=== PATIENT | male | born 1945 | race Caucasian/White ===

== ENCOUNTER → 2020-03-11 | Outpatient (CLI) | payer MEDICARE ==
[~2020-03-11] MED LIST: AMLO1CAP PO; DICL100G25 TD; DIGO125T76 PO; METO-93 PO; WARF7.5T46 PO; aleve PO
[2020-03-11 12:26] LABS: BASOPHILS % (AUTO) 1 % (0-1); EOSINOPHILS % (AUTO) 1 % (1-7); LYMPHOCYTES % (AUTO) 30 % (22-44); MEAN CORPUSCULAR HEMOGLOBIN 31.5 pg (27.5-34.5); MEAN CORPUSCULAR HGB CONC 33.6 g/dL (33.2-36.2); MEAN PLATELET VOLUME 8.4 fL (7.4-10.4); MONOCYTES % (AUTO) 12 % (2-9); NEUTROPHILS % (AUTO) 57 % (42-75); PLATELET COUNT 215 x10^3/uL (130-400); RED BLOOD COUNT 5.41 x10^6/uL (4.38-5.82); RED CELL DISTRIBUTION WIDTH 13.3 % (9.4-14.8)
[2020-03-11 12:35] LABS: INTERNATIONAL NORMALIZED RATIO 1.68 (0.93-1.1); PROTHROMBIN TIME 17.7 Seconds (9.6-11.5)
[2020-03-11 12:38] LABS: CHLORIDE 107 mmol/L (98-107)
[2020-03-11 12:44] LABS: ALANINE AMINOTRANSFERASE 20 U/L (12-78); ALBUMIN 3.7 g/dL (3.4-5.0); ALKALINE PHOSPHATASE 66 U/L (45-117); ANION GAP 5 mmol/L (5-15); BILIRUBIN,TOTAL 1.8 mg/dL (0.2-1.0); TOTAL PROTEIN 7.6 g/dL (6.4-8.2)
[2020-03-11 13:01] LABS: MD NO
== END | disposition home or self-care (01) ==
LOC: STAR 10:45
PROVIDERS: ATTEND Orthopaedic Surgery
DX: Z01.818 Encounter for other preprocedural examination (principal); M17.11 Unilateral primary osteoarthritis, right knee; M25.561 Pain in right knee; R94.31 Abnormal electrocardiogram [ECG] [EKG]; I48.91 Unspecified atrial fibrillation; Z20.828 Contact with and (suspected) exposure to other viral communicable diseases
CPT/HCPCS: 36415; 80053; 83036; 85025; 85610; 85730; 87081; 87635; 87806; 93005; G0475

== ENCOUNTER 2020-03-15 07:44 | Observation (INO) | payer MEDICARE ==
[2020-02-27] MEDS: WARFARIN 10 MG TABLET PO-COUM SCH (18:00)
[2020-03-05] MEDS: WARFARIN 10 MG TABLET PO-COUM SCH (18:00)
[2020-03-12] MEDS: WARFARIN 10 MG TABLET PO-COUM SCH (18:00)
[~2020-03-15] VITALS: Ht 175.3 cm; Wt 90.7 kg
[2020-03-15] MEDS ORDERED: LACTATED RINGERS 1,000 ML IV ONE (08:12)
[2020-03-15] MEDS ORDERED: CHLORHEXIDINE 15 ML UDC MM STA (08:12)
[2020-03-15] MEDS ORDERED: GABAPENTIN 300 MG CAPSULE PO STA (08:15)
[2020-03-15] MEDS ORDERED: ACETAMINOPHEN 500 MG TABLET PO STA (08:15)
[2020-03-15] MEDS ORDERED: DEXAMETHASONE 4 MG/ML, 1ML IVPush SCH (10:30)
[2020-03-15] MEDS ORDERED: PSYLLIUM PACKET PO PRN (10:30)
[2020-03-15] MEDS ORDERED: ONDANSETRON 2MG/ML, 2ML IVPush PRN ×2 (10:30→11:30)
[2020-03-15] MEDS ORDERED: DIPHENHYDRAMINE 50 MG CAPSULE PO PRN (10:30)
[2020-03-15] MEDS ORDERED: ACETAMINOPHEN 325 MG TABLET PO PRN (10:30)
[2020-03-15] MEDS ORDERED: OXYcodone IR 5MG TABLET PO PRN (10:30)
[2020-03-15] MEDS ORDERED: DIPHENHYDRAMINE 50 MG/ML, 1ML IVPush PRN (10:30)
[2020-03-15] MEDS ORDERED: PROMETHAZINE 25 MG/ML, 1ML IM PRN (10:30)
[2020-03-15] MEDS ORDERED: TRANEXAMIC ACID 1,000 MG in SODIUM CHLORIDE 0.9% 100 ML IVPB ONE (10:30)
[2020-03-15] MEDS ORDERED: HYDROmorphone 1 MG/ML, 1ML INJ IVPush PRN ×2 (10:30→11:30)
[2020-03-15] MEDS ORDERED: SENNA/DOCUSATE TABLET PO PRN (10:30)
[2020-03-15] MEDS ORDERED: MAGNESIUM HYDROXIDE 8%, 30ML UDC PO PRN (10:30)
[2020-03-15] MEDS ORDERED: METOCLOPRAMIDE 10MG TABLET PO PRN (10:30)
[2020-03-15] MEDS ORDERED: ALUMINUM/MAG/SIMETHICONE 30 ML UDC PO PRN (10:30)
[2020-03-15] MEDS ORDERED: ACETAMINOPHEN 650 MG/20.3 ML UDC PO PRN (10:30)
[2020-03-15] MEDS ORDERED: ONDANSETRON 4 MG TABLET PO PRN (10:30)
[2020-03-15] MEDS ORDERED: POLYETHYLENE GLYCOL 17 GM PACKET PO PRN (10:30)
[2020-03-15] MEDS ORDERED: TRANEXAMIC ACID 100 MG/ML, 10ML ONE (10:38)
[2020-03-15] MEDS ORDERED: KETOROLAC 60 MG/2 ML ONE (10:38)
[2020-03-15] MEDS ORDERED: EPINEPHRINE 1 MG/ML, 1ML ONE (10:39)
[2020-03-15] MEDS ORDERED: ROPIvacaine/PF 0.2%, 20 ML ONE (10:39)
[2020-03-15] MEDS ORDERED: ROPivacaine/PF 0.2%, 10 ML ONE (10:39)
[2020-03-15] MEDS ORDERED: SODIUM CHLORIDE 0.9% 50 ML ONE (10:39)
[2020-03-15] MEDS ORDERED: PROPOFOL 10 MG/ML, 20ML ONE (10:57)
[2020-03-15] MEDS ORDERED: EPINEPHRINE 1 MG/ML, 1ML INFIL ONE (10:57)
[2020-03-15] MEDS ORDERED: FENTANYL PF 250 MCG/5ML ONE (10:57)
[2020-03-15] MEDS ORDERED: LIDOCAINE-MPF 2% ,5ML ONE (10:57)
[2020-03-15] MEDS ORDERED: KETOROLAC 60 MG/2 ML INFIL ONE (10:57)
[2020-03-15] MEDS ORDERED: ROPIvacaine/PF 0.2%, 20 ML INFIL ONE (10:57)
[2020-03-15] MEDS ORDERED: SODIUM CHLORIDE 0.9% PF 10ML INJ ONE (10:57)
[2020-03-15] MEDS ORDERED: CEFAZOLIN 1,000 MG ONE ×2 (11:10)
[2020-03-15] MEDS ORDERED: DEXAMETHASONE 4 MG/ML, 1ML ONE ×3 (11:11)
[2020-03-15] MEDS ORDERED: OXYcodone 5 MG/5 ML ORAL.SOL UDC PO PRN (11:30)
[2020-03-15] MEDS ORDERED: ONDANSETRON 2MG/ML, 2ML ONE (12:17)
[2020-03-15] MEDS: FENTANYL PF 100 MCG/2ML IV PRN ×4 (12:45→13:24)
[2020-03-15] MEDS ORDERED: FENTANYL PF 100 MCG/2ML ONE ×2 (12:45→13:06)
[2020-03-15] MEDS ORDERED: OXYcodone 5 MG/5 ML ORAL.SOL UDC ONE (13:00)
[2020-03-15] MEDS: WARFARIN 10 MG TABLET PO-COUM SCH (16:18)
[2020-03-15] MEDS: POTASSIUM CHLORIDE 20 MEQ in D5%-0.45% NACL 1,000 ML IV SCH ×2 (16:19→19:54)
[2020-03-15] MEDS: KETOROLAC 30 MG/1 ML IV SCH (19:09)
[2020-03-15] MEDS: CEFAZOLIN PMX 1GM/50ML 50 ML IVPB SCH (19:15)
[2020-03-15 19:36] VITALS: BP 142/89
[2020-03-15] MEDS: DOCUSATE 100 MG CAPSULE PO SCH ×2 (19:36→19:54)
[2020-03-16 00:27] VITALS: BP 138/86
[2020-03-16] MEDS: KETOROLAC 30 MG/1 ML IV SCH ×2 (03:21→09:21)
[2020-03-16] MEDS: CEFAZOLIN PMX 1GM/50ML 50 ML IVPB SCH (03:22)
[2020-03-16 03:29] VITALS: BP 137/84
[2020-03-16 05:45] VITALS: BP 131/79
[2020-03-16] MEDS: POTASSIUM CHLORIDE 20 MEQ in D5%-0.45% NACL 1,000 ML IV SCH (05:46)
[2020-03-16] MEDS ORDERED: METOPROLOL SUCCINATE 50 MG TAB.ER.24H PO SCH (06:00)
[2020-03-16 06:09] LABS: INTERNATIONAL NORMALIZED RATIO 1.05 (0.93-1.1); PROTHROMBIN TIME 11.1 Seconds (9.6-11.5)
[2020-03-16 07:00] VITALS: BP 135/82
[2020-03-16] MEDS ORDERED: TAMSULOSIN 0.4 MG CAP.ER.24H PO SCH (09:00)
[2020-03-16] MEDS ORDERED: AMLODIPINE 10 MG TAB PO SCH (09:00)
[2020-03-16] MEDS ORDERED: BENAZEPRIL 20 MG TABLET PO SCH (09:00)
[2020-03-16] MEDS ORDERED: DIGOXIN 0.125 MG TABLET PO SCH (09:00)
[2020-03-16] MEDS: DOCUSATE 100 MG CAPSULE PO SCH (09:21)
[2020-03-16 10:30] VITALS: BP 147/87
[2020-03-16] MEDS ORDERED: FLU VACC QS2020-21(6MOS UP)/PF 60MCG/0.5 ML SYR IM ONE (10:30)
[2020-03-16] MEDS ORDERED: WARFARIN 7.5 MG TABLET PO-COUM SCH (18:00)
[2020-03-17] MEDS ORDERED: WARFARIN 7.5 MG TABLET PO-COUM SCH (18:00)
[2020-03-22] MEDS ORDERED: WARFARIN 2.5 MG TABLET PO-COUM SCH (18:00)
== END 2020-03-16 10:50 | disposition home or self-care (01) ==
LOC: OUT 07:44 → ORIP 10:27 → 3WST 13:57 → DCLOUNGE 03-16 10:40 → UNDODISOB 03-16 10:40
PROVIDERS: ADMIT Orthopaedic Surgery; ATTEND Orthopaedic Surgery
DX: M17.11 Unilateral primary osteoarthritis, right knee (principal); M71.20 Synovial cyst of popliteal space [Baker], unspecified knee; I48.20 Chronic atrial fibrillation, unspecified; Z87.891 Personal history of nicotine dependence; Z79.899 Other long term (current) drug therapy; Z23 Encounter for immunization
CPT/HCPCS: 27447; 36415; 73560; 85014; 85018; 85610; 90686; 96361; 96365; 96366; 96375; 96376; 97110; 97161; C1713; C1776; G0008; G0378; J0171; J0690; J1100; J1885; J2405; J2704; J2795; J3010; J3480; J3490; J7120